=== PATIENT | female | born 1950 | race Native Hawaiian/Other Pacific Islander ===

== ENCOUNTER 2022-02-05 11:34 | Observation (INO) | payer OTHER ==
[~2022-02-05] VITALS: Ht 167.6 cm; Wt 70.3 kg
[2022-02-05 13:47] LABS: POTASSIUM 3.7 mmol/L (3.6-5.2)
[2022-02-05 13:55] LABS: PLATELET COUNT 163 K/uL (152-353)
[2022-02-05 15:41] VITALS: BP 115/58; TEMP 98.5; BMI 21.6
[2022-02-05 16:16] VITALS: BP 150/62; TEMP 98.3
[2022-02-05] MEDS ORDERED: ALBU90AE13 INH (16:37)
[2022-02-05] MEDS ORDERED: ESTRADIOL0.1 MG/GM TOP (16:39)
[2022-02-05] MEDS ORDERED: LEVEMIR FL100 UNIT/M SC (16:39)
[2022-02-05] MEDS ORDERED: NOVOLOG100 UNIT/M SC (16:40)
[2022-02-05] MEDS ORDERED: DICYCLOMINE HYD10 MG PO (16:41)
[2022-02-05] MEDS ORDERED: ONDA4TAB3 PO (16:42)
[2022-02-05] MEDS ORDERED: OMEPRAZOLE DR20 MG PO (16:42)
[2022-02-05] MEDS ORDERED: MIRALAX17 GM PO (16:42)
[2022-02-05 20:00] VITALS: BP 157/61; TEMP 98.4
[2022-02-06] VITALS: BP 144/54; TEMP 98.9
[2022-02-06 04:00] VITALS: BP 144/51; TEMP 98.6
[2022-02-06 08:00] VITALS: BP 129/56; TEMP 98.6
[2022-02-06 09:08] LABS: PLATELET COUNT 159 K/uL (152-353)
[2022-02-06 09:41] LABS: POTASSIUM 3.6 mmol/L (3.6-5.2)
[2022-02-06 12:00] VITALS: BP 142/56; BP 1452/56; TEMP 98.6
[2022-02-06 16:00] VITALS: BP 159/63; TEMP 98.2
[2022-02-06 20:00] VITALS: BP 148/80; TEMP 98.6
[2022-02-07] VITALS (7 sets, daily range): BP systolic 113–160; BP diastolic 44–90; TEMP 97.1–99; Ht 167.6 cm; Wt 70.3 kg
[2022-02-08] VITALS: BP 110/60; TEMP 98.3
[2022-02-08 04:00] VITALS: BP 108/52; TEMP 98.4
[2022-02-08 04:28] LABS: PLATELET COUNT 153 K/uL (152-353)
[2022-02-08 04:51] LABS: POTASSIUM 3.2 mmol/L (3.6-5.2)
[2022-02-08 08:14] VITALS: BP 143/58; TEMP 98.3
== END 2022-02-08 11:30 | disposition home or self-care (01) ==
LOC: MED/SURG 11:34
PROVIDERS: ADMIT Family Medicine; ATTEND Family Medicine
DX: R10.817 Generalized abdominal tenderness (principal); K57.92 Diverticulitis of intestine, part unspecified, without perforation or abscess without bleeding; R11.0 Nausea; E86.0 Dehydration; I10 Essential (primary) hypertension; E87.6 Hypokalemia; D64.89 Other specified anemias; K59.09 Other constipation; Z11.52 Encounter for screening for COVID-19; E11.9 Type 2 diabetes mellitus without complications; Z79.4 Long term (current) use of insulin
CPT/HCPCS: 36415; 80053; 81002; 82948; 84439; 84443; 85027; 87015; 87040; 87045; 87635; 87899; 96360; 96361; 96367; 96372; 96374; 96375; 99220; G0378; G0379; J1650; J1815; J1885; J1956; J2405; J3490; Q9963; U0003

== ENCOUNTER 2023-02-11 08:38 | Outpatient (CLI) | payer OTHER ==
[~2023-02-11 08:38] MED LIST: ALBU90AE13 INH; DICYCLOMINE HYD10 MG PO; ESTRADIOL0.1 MG/GM TOP; LEVEMIR FL100 UNIT/M SC; MIRALAX17 GM PO; NOVOLOG100 UNIT/M SC; OMEPRAZOLE DR20 MG PO; ONDA4TAB3 PO
== END 2023-02-11 19:12 | disposition home or self-care (01) ==
LOC: US 08:38
PROVIDERS: ATTEND Family Medicine
DX: E11.65 Type 2 diabetes mellitus with hyperglycemia (principal); E78.2 Mixed hyperlipidemia; R42 Dizziness and giddiness

== ENCOUNTER 2023-04-09 09:05 | Outpatient (CLI) | payer OTHER | END 2023-04-09 19:15 | disposition home or self-care (01) | LOC: US 09:05 | PROVIDERS: ATTEND Family Medicine | DX: R51.9 Headache, unspecified (principal); R10.9 Unspecified abdominal pain; R74.8 Abnormal levels of other serum enzymes; R11.2 Nausea with vomiting, unspecified ==